=== PATIENT | male | born 1995 | race Caucasian/White ===

== ENCOUNTER 2017-01-05 10:41 | Emergency (ER) | payer BC, MEDICAID ==
[~2017-01-05] VITALS: Ht 170.2 cm; Wt 59.0 kg
[~2017-01-05 10:41] MED LIST: DIPH25CA83 PO
--- NOTE | 2017-01-05 11:50 | NUR ---
PATIENT BEING SEEN BY DOCTOR HEADLEY.
--- NOTE | 2017-01-05 12:05 | NUR ---
RADIOLOGY DOING XRAY
--- NOTE | 2017-01-05 12:50 | NUR ---
Pt c/o L rib pain, medicated as ordered. Cont to observe.
[2017-01-05] MEDS ORDERED: HYDROCODONE/APAP 5-325MG TABLET ONE (12:57)
[2017-01-05] MEDS ORDERED: HYDROCODONE/APAP 5-325MG TABLET PO ONE (13:00)
--- NOTE | 2017-01-05 13:59 | NUR ---
PATIENT DISCHARGED ALL PAPERWORK GIVEN WITH PRESCRIPTION.
[2017-01-05] MEDS ORDERED: IBUPROFEN 600 MG TABLET PO ONE (14:00)
[2017-01-05] MEDS ORDERED: IBUPROFEN 600 MG TABLET ONE (14:06)
== END 2017-01-05 14:00 | disposition home or self-care (01) ==
LOC: ER 10:41
DX: S29.019A Strain of muscle and tendon of unspecified wall of thorax, initial encounter (principal); X58.XXXA Exposure to other specified factors, initial encounter; Y93.9 Activity, unspecified; Y99.9 Unspecified external cause status; Y92.9 Unspecified place or not applicable
CPT/HCPCS: 71101; 99284; A4663

== ENCOUNTER 2022-07-27 20:51 | Emergency (ER) | payer MEDICAID, OTHER ==
[~2022-07-27] VITALS: Ht 175.3 cm; Wt 59.0 kg
[2022-07-27] MEDS ORDERED: HYDR-3980 PO (22:41)
[2022-07-27] MEDS ORDERED: IBUP-1955 PO ×2 (22:41→22:44)
[2022-07-27] MEDS ORDERED: TRAM50TA2 PO (22:44)
[2022-07-27] MEDS ORDERED: ACET-2154 PO (22:44)
[2022-07-27] MEDS ORDERED: KETOROLAC TROMETHAMINE 30 MG INJ ONE (23:14)
[2022-07-27] MEDS ORDERED: HYDROCODONE/APAP 5-325MG TABLET ONE (23:14)
[2022-07-27] MEDS: HYDROCODONE/APAP 5-325MG TABLET PO ONE (23:16)
[2022-07-27] MEDS: KETOROLAC TROMETHAMINE 30 MG INJ IM ONE (23:16)
[2022-07-27 23:24] VITALS: BP 122/65
--- NOTE | 2022-07-27 23:24 | NUR ---
Patient discharged to home in stable condition. Written and verbal after care instructions given. Patient verbalizes understanding of instructions. Stressed follow up or return to ER for worsening s/s. Patient is a/ox4, NAD noted. Patient is able to walk with cruthes
== END 2022-07-27 23:25 | disposition home or self-care (01) ==
LOC: ER 20:51
DX: S92.355A Nondisplaced fracture of fifth metatarsal bone, left foot, initial encounter for closed fracture (principal); W18.41XA Slipping, tripping and stumbling without falling due to stepping on object, initial encounter; Y92.89 Other specified places as the place of occurrence of the external cause
CPT/HCPCS: 99283; 29515; 73630; 96372; J1885; A4663

== ENCOUNTER 2024-02-22 14:00 | Emergency (ER) | payer OTHER ==
[~2024-02-22] VITALS: Ht 172.7 cm; Wt 56.7 kg
[~2024-02-22 14:00] MED LIST changes: +ACET-2154 PO; +IBUP-1955 PO; +TRAM50TA2 PO
[2024-02-22] MEDS: HYDROMORPHONE 1 MG/1 ML DISP.SYRIN IV ONE ×3 (14:30→17:28)
[2024-02-22] MEDS ORDERED: ONDANSETRON 4 MG/2 ML VIAL ONE (14:31)
[2024-02-22] MEDS ORDERED: HYDROMORPHONE 1 MG/1 ML DISP.SYRIN ONE ×3 (14:31→17:25)
[2024-02-22 14:52] LABS: BASOPHILS # (AUTO) 0.1 K/UL (0.0-0.2); BASOPHILS % (AUTO) 1.2 % (0.0-2.0); EOSINOPHILS # (AUTO) 0.5 K/uL (0.0-0.7); EOSINOPHILS % (AUTO) 5.1 % (0.0-7.0); HEMATOCRIT 38.2 % (36.7-47.1); HEMOGLOBIN 13.4 g/dL (12.5-16.3); LYMPHOCYTES # (AUTO) 1.9 K/uL (0.8-4.8); LYMPHOCYTES % (AUTO) 17.4 % (20.5-51.5); MEAN CORPUSCULAR HEMOGLOBIN 31.3 uug (23.8-33.4); MEAN CORPUSCULAR HGB CONC 35 g/dL (32.5-36.3); MEAN CORPUSCULAR VOLUME 89.3 fL (73.0-96.2); MONOCYTES # (AUTO) 0.4 K/uL (0.1-1.30); MONOCYTES % (AUTO) 3.3 % (0.0-11.0); NEUTROPHILS # (AUTO) 7.9 K/uL (1.8-8.9); PLATELET COUNT (AUTO) 233 K/uL (152-348); RED BLOOD CELL COUNT(AUTO) 4.28 MIL/uL (4.06-5.63); RED CELL DISTRIBUTION WIDTH 13.2 % (12.1-16.2); WHITE BLOOD COUNT (AUTO) 10.8 K/uL (3.6-10.2)
[2024-02-22 14:56] LABS: DIFFERENTIAL COMMENT 1
[2024-02-22] MEDS ORDERED: IOHEXOL 300MG/ML 100 ML INFUS..BTL ONE (15:01)
[2024-02-22] MEDS ORDERED: SWABABLE VALVE TRANSFER SET EA MC ONE (15:01)
[2024-02-22] MEDS ORDERED: IV NORMAL SALINE 250 ML IV ONE (15:01)
[2024-02-22 15:06] LABS: ALANINE AMINOTRANSFERASE 17 U/L (16-63); ALBUMIN 3.7 g/dL (3.4-5.0); ALKALINE PHOSPHATASE 102 U/L (50-136); ASPARTATE AMINOTRANSFERASE 8 U/L (15-37); BILIRUBIN,TOTAL 0.3 mg/dL (0.2-1.0); CARBON DIOXIDE 29 mmol/L (21-32); CHLORIDE 106 mmol/L (98-107); GLUCOSE 96 mg/dL (74-106); LIPASE 19 U/L (16-77); POTASSIUM 3.6 mmol/L (3.5-5.1); SODIUM SERUM 143 mmol/L (136-145); TOTAL PROTEIN, SERUM 6.5 g/dL (6.4-8.2); UREA NITROGEN, BLOOD 6 mg/dL (7-18)
[2024-02-22] MEDS: ONDANSETRON 4 MG/2 ML VIAL IV ONE (15:07)
[2024-02-22] MEDS: IV NORMAL SALINE 1000 ML BAG IV ONE (15:07)
[2024-02-22 15:09] LABS: BILIRUBIN,DIRECT < 0.1 mg/dL (0.0-0.2)
[2024-02-22 15:48] LABS: *BILIRUBIN,URIN NEGATIVE (NEGATIVE); *BLOOD, URINE NEGATIVE (NEGATIVE); *CLARITY,URINE CLEAR (CLEAR); *COLOR,URINE YELLOW (YELLOW); *KETONES,URINE NEGATIVE (NEGATIVE); *PROTEIN,URINE NEGATIVE (NEGATIVE); *UROBILINOGEN,URINE 0.2 E.U./dl (NORMAL); LEUKOCYTE ESTERASE ,URINE NEGATIVE (NEGATIVE); NITRITE, URINE NEGATIVE (NEGATIVE); PH,URINE 7.5 (5.0-8.0); UGLUCOSE NEGATIVE (NEGATIVE)
[2024-02-22] MEDS ORDERED: HYDR-3980 PO (16:56)
[2024-02-22 17:00] VITALS: O2SAT 99
[2024-02-22] MEDS ORDERED: METR500T PO (17:17)
[2024-02-22] MEDS ORDERED: OMEP20TA20 PO (17:17)
[2024-02-22] MEDS ORDERED: BISM262T15 PO (17:17)
[2024-02-22] MEDS ORDERED: TETR-57 PO (17:17)
== END 2024-02-22 17:34 | disposition home or self-care (01) ==
LOC: ER 14:00
DX: K29.70 Gastritis, unspecified, without bleeding (principal); R63.0 Anorexia; F17.210 Nicotine dependence, cigarettes, uncomplicated; Z79.899 Other long term (current) drug therapy
CPT/HCPCS: 99285; 74177; 96374; 76705; 96361; 96375; 99406; 80076; 80048; 81003; 83690; 85025; 36415; 96376; J2405; Q9967; J1170 ×3; J7040

== ENCOUNTER 2025-10-05 19:33 | Emergency (ER) | payer OTHER ==
[~2025-10-05] VITALS: Ht 175.3 cm; Wt 61.2 kg
[~2025-10-05 19:33] MED LIST changes: +BISM262T15 PO; +HYDR-3980 PO; -IBUP-1955 PO; +IBUP-2760 PO; +METR500T PO; +OMEP20TA20 PO; +TETR-57 PO
[2025-10-05 19:36] VITALS: BP 112/62
[2025-10-05] MEDS ORDERED: HYDR-3980 PO (19:57)
[2025-10-05] MEDS ORDERED: ONDA-243 PO (19:57)
[2025-10-05] MEDS ORDERED: HYDROCODONE/APAP 10-325 MG TABLET ONE (20:04)
[2025-10-05] MEDS ORDERED: PENICILLIN G BENZATHINE 2.4 MMU/4 ML DISP.SYRIN IM ONE (20:06)
[2025-10-05] MEDS: HYDROCODONE/APAP 10-325 MG TABLET PO ONE (20:20)
[2025-10-05] MEDS: PENICILLIN G BENZATHINE 2.4 MMU/4 ML DISP.SYRIN IM ONE (20:20)
[2025-10-05 20:36] VITALS: BP 112/62; O2SAT 96
== END 2025-10-05 20:36 | disposition home or self-care (01) ==
LOC: ER 19:55
DX: K08.89 Other specified disorders of teeth and supporting structures (principal); F17.210 Nicotine dependence, cigarettes, uncomplicated; F12.90 Cannabis use, unspecified, uncomplicated; Z79.899 Other long term (current) drug therapy; Z88.7 Allergy status to serum and vaccine
CPT/HCPCS: 99283; 96372; J0561; A4606; A4663